=== PATIENT | male | born 1995 | race Caucasian/White ===

== ENCOUNTER 2019-11-20 21:16 | Emergency (ER) | payer MEDICAID ==
[~2019-11-20] VITALS: Ht 177.8 cm; Wt 60.1 kg
[2019-11-20 21:21] VITALS: BP 131/80
[2019-11-20] MEDS ORDERED: CEFTRIAXONE 250 MG ONE (22:19)
[2019-11-20] MEDS ORDERED: AZITHROMYCIN 500 MG TABLET ONE (22:19)
[2019-11-20] MEDS ORDERED: CEFTRIAXONE 250 MG IM ONE (22:30)
[2019-11-20] MEDS ORDERED: AZITHROMYCIN 500 MG TABLET PO ONE (22:30)
[2019-11-20 22:50] LABS: MICROSCOPIC AUTO
== END 2019-11-20 23:12 | disposition home or self-care (01) ==
LOC: ED 22:21
DX: A64 Unspecified sexually transmitted disease (principal); R30.0 Dysuria; N50.819 Testicular pain, unspecified; Z85.05 Personal history of malignant neoplasm of liver
CPT/HCPCS: 81001; 87086; 87491; 87591; 96372; 99283; J0696

== ENCOUNTER 2020-07-04 12:19 | Emergency (ER) | payer MEDICAID, OTHER ==
[~2020-07-04] VITALS: Ht 177.8 cm; Wt 52.8 kg
[2020-07-04 12:21] VITALS: BP 123/81
--- NOTE | 2020-07-04 12:38 | NUR ---
pt is a 25m complaining of painful urination and yellow penile d/c x 5 days. provider at bedside for evaluation. urine specimin collected and sent. call light within reach. no further needs at this time.
[2020-07-04] MEDS ORDERED: CEFTRIAXONE 250 MG ONE (12:45)
[2020-07-04] MEDS ORDERED: AZITHROMYCIN 250 MG TABLET ONE (12:47)
[2020-07-04] MEDS ORDERED: AZITHROMYCIN 500 MG TABLET PO ONE (13:00)
[2020-07-04] MEDS ORDERED: CEFTRIAXONE 250 MG IM ONE (13:00)
--- NOTE | 2020-07-04 13:24 | NUR ---
discharge instructions reviewed
== END 2020-07-04 13:26 | disposition home or self-care (01) ==
LOC: ED 13:00
DX: N34.2 Other urethritis (principal)
CPT/HCPCS: 87491; 87591; 96372; 99283; J0696

== ENCOUNTER 2020-08-29 12:45 | Emergency (ER) | payer MEDICAID ==
[~2020-08-29] VITALS: Ht 177.8 cm; Wt 58.9 kg
--- NOTE | 2020-08-29 13:11 | NUR ---
PT AMBULATED TO RESTROOM WITH STEADY GAIT TO PROVIDE URINE SAMPLE. UA COLLECTED AND SENT TO LAB. MD RESIDENT AT BEDSIDE FOR ASSESSMENT.
[2020-08-29 13:20] LABS: MICROSCOPIC AUTO
[2020-08-29 13:48] LABS: BASOPHILS % (AUTO) 1 % (0-1); EOSINOPHILS % (AUTO) 14 % (1-7); LYMPHOCYTES % (AUTO) 43 % (22-44); MEAN CORPUSCULAR HEMOGLOBIN 28.3 pg (27.5-34.5); MEAN CORPUSCULAR HGB CONC 33.3 g/dL (33.2-36.2); MONOCYTES % (AUTO) 8 % (2-9); NEUTROPHILS % (AUTO) 34 % (42-75); PLATELET COUNT 200 x10^3/uL (130-400); RED BLOOD COUNT 5.23 x10^6/uL (4.38-5.82); RED CELL DISTRIBUTION WIDTH 14.2 % (9.4-14.8)
[2020-08-29 13:49] LABS: MD NO
[2020-08-29 13:59] LABS: ALBUMIN 4.4 g/dL (3.4-5.0); ANION GAP 4 mmol/L (5-15); CALCIUM 9.2 mg/dL (8.5-10.1); CHLORIDE 103 mmol/L (98-107)
[2020-08-29 14:00] LABS: CREATININE 0.99 mg/dL (0.7-1.3)
--- NOTE | 2020-08-29 14:33 | NUR ---
PT AT CT
[2020-08-29 14:47] VITALS: BP 131/74
--- NOTE | 2020-08-29 14:48 | NUR ---
N/O RECEIVED FROM MD RESIDENT FOR URINE. CANNOT USE URINE ALREADY COLLECTED, SINCE PT HAD RECENTLY URINATED PRIOR TO COLLECTED URINE. NEW URINE SAMPLE NEEDS TO BE PROVIDED AT LEAST 2 HOURS AFTER PREVIOUS URINATION. PT AWARE TO PROVIDE URINE SAMPLE AT ABOUT 1508. URINE CUP PROVIDED.
--- NOTE | 2020-08-29 15:18 | NUR ---
PT PROVIDED URINE SAMPLE. UA COLLECTED AND SENT TO LAB. LAB NOTIFIED TO USE NEW URINE SAMPLE, NOT THE PREVIOUS SAMPLE.
--- NOTE | 2020-08-29 15:20 | NUR ---
ALL RESULTS ARE BACK. URINE IS SEND OUT FOR TESTING. CHART UP FOR RECHECK.
--- NOTE | 2020-08-29 15:55 | NUR ---
RESIDENT AT BEDSIDE TO UPDATE PT ON POC.
== END 2020-08-29 16:24 | disposition home or self-care (01) ==
LOC: ED 13:01
DX: R30.0 Dysuria (principal); A54.01 Gonococcal cystitis and urethritis, unspecified; R35.0 Frequency of micturition
CPT/HCPCS: 36415; 74176; 80048; 81001; 82040; 85025; 87086; 87491; 87591; 99284